=== PATIENT | male | born 1995 | race Caucasian/White ===

== ENCOUNTER → 2016-07-16 | Outpatient (CLI) | payer OTHER | LOC: QUICK 22:22 | PROVIDERS: ATTEND Nurse Practitioner Family | DX: J02.8 Acute pharyngitis due to other specified organisms (principal) | CPT/HCPCS: 87070 ==

== ENCOUNTER → 2016-12-27 | Outpatient (CLI) | payer OTHER | LOC: LAB 09:19 | PROVIDERS: ATTEND Internal Medicine | DX: R19.7 Diarrhea, unspecified (principal) | CPT/HCPCS: 87045; 87046; 87324; 87449; 89055 ==